=== PATIENT | female | born 1985 | race African-American/Black ===

== ENCOUNTER 2017-03-23 10:35 | Day surgery (SDC) | payer OTHER ==
[2017-03-22 14:07] VITALS: BMI 29.2
[~2017-03-23 10:35] MED LIST: Dexamethasone 20 MG/5 ML VIAL ONE; Lidocaine 1% PF 5 ML VIAL ONE; Metoprolol Tartrate 5 MG/5 ML VIAL ONE; Ondansetron HCl/PF 4 MG/2 ML Vial ONE; PROPOFOL 200 MG/20 ML VIAL ONE
[2017-03-23] MEDS ORDERED: Heparin 5,000 UNITS/ML VIAL ONE (11:25)
[2017-03-23] MEDS ORDERED: CEFAZOLIN/Water 2 GM/20 ML SYRINGE ONE (11:25)
[2017-03-23] MEDS ORDERED: Bupivacaine/Epinephrine 0.25% 30 ML VIAL ONE (11:29)
[2017-03-23] MEDS ORDERED: Lidocaine 1% (PF) 30 ML VIAL ONE (11:29)
[2017-03-23] MEDS ORDERED: Sodium Chloride 0.9% 0 ML ONE ×2 (11:29)
[2017-03-23] MEDS ORDERED: Gentamicin 80 MG/2 ML VIAL ONE (11:29)
[2017-03-23] MEDS ORDERED: EPINEPHrine 1 MG/ML AMP ONE (11:29)
[2017-03-23] MEDS ORDERED: Fentanyl 100 MCG/2 ML VIAL ONE ×3 (12:04→17:19)
[2017-03-23] MEDS ORDERED: Midazolam HCl 2 mg/2 ml Vial ONE (12:08)
[2017-03-23] MEDS ORDERED: Ondansetron ODT 4 MG TAB ONE (18:52)
--- NOTE | 2017-03-23 22:05 | OP ---
PREOPERATIVE DIAGNOSES: Macromastia. POSTOPERATIVE DIAGNOSIS: Macromastia. PROCEDURE: Bilateral breast reduction. OPERATIVE FINDINGS: Right breast resection (50) DESCRIPTION OF PROCEDURE: Following induction of adequate anesthesia, the patient was prepped and dr aped in the usual sterile fashion in the supine position. The right nipple was circumcised around a 42 mm nipple sizer. The skin over the inferior pole of the breast is deepithelialized. Tucker pattern flaps were then raised superiorly, medially, and laterally. Dermoglandular units were then resected superiorly, medially, and laterally taking the pedicle down as small as it could be and still sustai n the nipple. This left the patient still significantly larger as she wanted. At this point, there was approximately 750 gram resection. The nipple was then harvested as deep pedicle was extremely lo ng. The nipple was then harvested as a full-thickness skin graft. The remainder of the pedicle was then sculpted to give the patient the desired shape. The central mound was then secured superiorly t o the pectoralis fascia. The field was copiously irrigated and inspected for meticulous hemostasis p rior to closure of the inverted T with interrupted 3-0 PDS suture and 3-0 Monocryl suture. The nippl e was inset on a de-epithelialized nipple defect with quilting 5-0 chromic sutures. A similar procedure was done on the other side except for the fact that the nipple was immediately jerez rvested as a graft. The patient tolerated the procedure well. At the end of the procedure, the enti re field was thoroughly irrigated and inspected for meticulous hemostasis.
== END 2017-03-23 19:05 | disposition home or self-care (01) ==
LOC: SDC 10:35
PROVIDERS: ATTEND Plastic Surgery
PROC: 0HSWXZZ Reposition Right Nipple, External Approach (ICD-10-PCS; principal; 2017-03-23)
PROC: 0H0T0ZZ Alteration of Right Breast, Open Approach (ICD-10-PCS; principal; 2017-03-23)
PROC: 0H0U0ZZ Alteration of Left Breast, Open Approach (ICD-10-PCS; principal; 2017-03-23)
DX: N62 Hypertrophy of breast (principal); Z90.710 Acquired absence of both cervix and uterus
CPT/HCPCS: 88305; 96374; A4216; J0131; J0171; J1100; J1580; J1644; J2001; J2250; J2405; J2704; J3010; J3370; J3490; Q0162